=== PATIENT | male | born 1975 | race Caucasian/White ===

== ENCOUNTER 2017-10-17 07:58 | Outpatient (CLI) | payer OTHER ==
--- NOTE | 2017-10-17 10:01 | MRI ---
MRI LEFT KNEE WITHOUT CONTRAST: Date: 10/17/17 HISTORY: M25.562, left knee pain. COMPARISON: None. FINDINGS: Medial Meniscus: Intact. Lateral Meniscus: Intact. ACL, PCL, MCL, and LCL: Intact. Extensor Mechanism: Quadriceps tendon, patella, and patellar tendon are all intact. Cartilage: Patellofemoral compartment: There appears to be some cartilage delamination with incompletely remove d 20-30% thickness chondral defect measuring 6.0 mm craniocaudad x 5.0 mm in AP dimension. The patell ar cartilage has low grade fissuring at the patellar apex. Medial compartment: There is some low grade chondral delamination along the lateral weightbearing corea rface of the lateral femoral condyle without displacement. Lateral Compartment: Intact. Bones: No fracture. No malalignment. Soft Tissues: There is extensive superficial soft tissue edema of the lateral aspect of the proximal knee. There is partial tear of the iliotibial band and an interstitial longitudinal component. This is incompletely evaluated and likely extends more proximally and to the side. There is some edema of the vastus late ralis muscle. No significant popliteal cyst. There is a moderate to large joint effusion. The medial patellar plica is mildly thickened. IMPRESSION: 1. There is a focal area of chondral delamination which is incompletely displaced from the medial tr ochlea measuring 6.0 x 6.0 mm. 2. Chondral delamination along the lateral weightbearing surface of the medial femoral condyle, whic h is not displaced. 3. Moderate joint effusion. 4. Incomplete longitudinal tear of the IT band, incompletely evaluated, likely extends proximally al sharon the thigh. There is edema due to the IT band along the vastus lateralis muscle. POS: [facility]
== END 2017-10-17 07:59 | disposition home or self-care (01) ==
LOC: SCSMRI 07:58
PROVIDERS: ATTEND Orthopaedic Surgery
DX: M25.562 Pain in left knee (principal); M25.462 Effusion, left knee; R60.0 Localized edema

== ENCOUNTER 2021-10-24 21:55 | Emergency (ER) | payer BC, SELFPAY ==
[2021-10-25] MEDS ORDERED: Boostrix 0.5 ML (Tdap) VIAL ONE (00:18)
== END 2021-10-25 00:30 | disposition home or self-care (01) ==
LOC: ERS 21:55
DX: S91.331A Puncture wound without foreign body, right foot, initial encounter (principal); W45.8XXA Other foreign body or object entering through skin, initial encounter
CPT/HCPCS: 90471; 90715; 99283